=== PATIENT | male | born 1990 | race Caucasian/White ===

== ENCOUNTER 2025-02-18 02:50 | Emergency (ER) | payer SELFPAY ==
[~2025-02-18] VITALS: Ht 167.6 cm; Wt 70.3 kg
[2025-02-18 02:58] VITALS: BP 130/79; PULSE 130; RESP 18; TEMP 36.7; O2SAT 98
== END 2025-02-18 03:55 | disposition left against medical advice (07) ==
LOC: ER 02:50
DX: F10.129 Alcohol abuse with intoxication, unspecified (principal); R00.0 Tachycardia, unspecified; Y90.9 Presence of alcohol in blood, level not specified
CPT/HCPCS: 99283; Z7610; A4606